=== PATIENT | female | born 1975 | race Asian ===

== ENCOUNTER 2016-12-10 23:30 | Inpatient (IN) | payer OTHER ==
[~2016-12-10] VITALS: Ht 165.1 cm; Wt 76.2 kg
[2016-12-10] MEDS ORDERED: OXYTOCIN 10 UNITS/ML VIAL IM SCH (23:35)
[2016-12-10] MEDS ORDERED: PROMETHAZINE 25 MG/ML VIAL IVP PRN (23:35)
[2016-12-10] MEDS ORDERED: OXYTOCIN 20 UNITS/LR PREMIX 1,000 ML IV SCH (23:35)
[2016-12-10] MEDS ORDERED: NALBUPHINE HYDROCHLORIDE 10 MG/ML VIAL IVP PRN (23:35)
[2016-12-10] MEDS: LACTATED RINGERS 1,000 ML IV SCH (23:45)
[2016-12-10 23:55] LABS: BASOPHILS # (AUTO) 0.1 K/uL (0.00-0.22); BASOPHILS % (AUTO) 1.1 % (0.0-2.0); EOSINOPHILS # (AUTO) 0.1 K/uL (0-0.4); EOSINOPHILS % (AUTO) 1.6 % (0.0-4.0); HEMATOCRIT 40.5 % (36-48); HEMOGLOBIN 13.4 g/dL (12.0-16.0); LYMPHOCYTES # (AUTO) 1.6 K/uL (2.5-16.5); LYMPHOCYTES % (AUTO) 22.8 % (20.5-51.1); MEAN CORPUSCULAR HEMOGLOBIN 31 pg (27-31); MEAN CORPUSCULAR HGB CONC 33 g/dL (33-37); MEAN CORPUSCULAR VOLUME 94 fL (80-94); MONOCYTES # (AUTO) 0.5 K/uL (0.8-1.0); MONOCYTES % (AUTO) 6.5 % (1.7-9.3); NEUTROPHILS # (AUTO) 4.7 K/uL (1.8-7.7); PLATELET COUNT (AUTO) 172 K/uL (140-450)
[2016-12-10 23:59] LABS: APPEARANCE,URINE SL CLOUDY (CLEAR); BILIRUBIN,URINE NEGATIVE (NEGATIVE); BLOOD, URINE 2+ (NEGATIVE); COLOR,URINE YELLOW (YELLOW); LEUKOCYTE ESTERASE ,URINE NEGATIVE (NEGATIVE); NITRITE, URINE NEGATIVE (NEGATIVE); PROTEIN,URINE NEGATIVE (NEGATIVE); UGLUCOSE 2+ (NEGATIVE); UROBILINOGEN,URINE 0.2 EU/dL (0.2 - 1)
[2016-12-11] MEDS ORDERED: OXYTOCIN 10 UNITS/ML VIAL ONE (00:09)
[2016-12-11] MEDS ORDERED: OXYTOCIN 20 UNITS/LR PREMIX 1,000 ML IV ONE (00:09)
[2016-12-11] MEDS ORDERED: NALBUPHINE HYDROCHLORIDE 10 MG/ML VIAL ONE (00:10)
[2016-12-11 00:11] LABS: ALBUMIN 2.8 g/dL (3.4-5.0); ANION GAP 17.6 (8-16); CALCIUM 9.1 mg/dL (8.5-10.1); CARBON DIOXIDE 20.8 mmol/L (21-32); CREATININE 0.7 mg/dL (0.6-1.3); POTASSIUM 4.4 mmol/L (3.5-5.1); TOTAL BILIRUBIN 0.2 mg/dL (0.0-1.0); TOTAL PROTEIN, SERUM 6.7 g/dL (6.4-8.2)
[2016-12-11 00:31] LABS: BACTERIA,URINE FEW /HPF (None Seen); RBC,URINE 0-5 (RARE) /HPF (0-5); WBC,URINE 0-5 (RARE) /HPF (0-5)
[2016-12-11] MEDS: LACTATED RINGERS 1,000 ML IV SCH ×2 (00:45→01:45)
[2016-12-11] MEDS ORDERED: ROPIVACAINE 0.2%/NS PREMIX 250 ML EPI ONE (00:52)
[2016-12-11] MEDS ORDERED: ROPIVACAINE 0.2%/NS PREMIX 250 ML EPI SCH (01:05)
[2016-12-11 02:00] VITALS: BP 133/68
[2016-12-11] MEDS ORDERED: MEASLES, MUMPS, AND RUBELLA 1 VIAL SQVAC PRN (02:25)
[2016-12-11] MEDS ORDERED: IBUPROFEN 800 MG TAB PO PRN (02:25)
[2016-12-11] MEDS ORDERED: WITCH HAZEL 40 PAD PACKAGE TP PRN (02:25)
[2016-12-11] MEDS ORDERED: OXYTOCIN 10 UNITS/ML VIAL IM PRN (02:25)
[2016-12-11] MEDS ORDERED: TEMAZEPAM 15 MG CAP PO PRN (02:25)
[2016-12-11] MEDS ORDERED: HYDROcodone/APAP 5/325 MG 1 TAB TAB PO PRN (02:25)
[2016-12-11] MEDS ORDERED: BENZOCAINE/MENTHOL 20%-0.5% 60 GM CAN TP PRN (02:25)
[2016-12-11] MEDS ORDERED: METHYLERGONOVINE 0.2 MG/ML AMP IM PRN (02:25)
[2016-12-11] MEDS ORDERED: oxyCODONE/APAP 5/325 MG 1 TAB TAB PO PRN (02:25)
[2016-12-11] MEDS ORDERED: AMMONIA AROMATIC 1 INHL INH ONE (05:27)
--- NOTE | 2016-12-11 08:07 | NUR ---
PATIENT HAS BEEN SCREENED AND CATEGORIZED LOW NUTRITION RISK. PATIENT WILL BE SEEN WITHIN 7 DAYS OF ADMISSION. 12/17/[address]
[2016-12-11] MEDS ORDERED: SODIUM PHOSPHATE 118 ML ENEM RC PRN (11:20)
[2016-12-11] MEDS ORDERED: DOCUSATE SOD/SENNA 50/8.6 MG 1 TAB PO SCH (21:00)
[2016-12-12 06:01] LABS: HEMATOCRIT 37.8 % (36-48)
[2016-12-12] MEDS ORDERED: IBUP-2213 PO (09:14)
== END 2016-12-12 17:00 | disposition home or self-care (01) | DRG 560 ==
LOC: MLD 23:30 → MFCC 12-11 04:05
PROVIDERS: ADMIT Obstetrics & Gynecology; ATTEND Obstetrics & Gynecology
PROC: 10E0XZZ Delivery of Products of Conception, External Approach (ICD-10-PCS; principal; 2016-12-11)
PROC: 0W8NXZZ Division of Female Perineum, External Approach (ICD-10-PCS; 2016-12-11)
PROC: 00HU33Z Insertion of Infusion Device into Spinal Canal, Percutaneous Approach (ICD-10-PCS; 2016-12-11)
PROC: 3E0R3CZ (ICD-10-PCS; 2016-12-11)
PROC: 3E0234Z Introduction of Serum, Toxoid and Vaccine into Muscle, Percutaneous Approach (ICD-10-PCS; 2016-12-12)
DX: O24.424 Gestational diabetes mellitus in childbirth, insulin controlled (principal); O09.293 Supervision of pregnancy with other poor reproductive or obstetric history, third trimester; O09.523 Supervision of elderly multigravida, third trimester; O89.4 Spinal and epidural anesthesia-induced headache during the puerperium; Z23 Encounter for immunization; Z37.0 Single live birth; Z3A.38 38 weeks gestation of pregnancy; Z83.3 Family history of diabetes mellitus
CPT/HCPCS: 36415; 51702; 59409; 80053; 81001; 85018; 85025; 86592; 86886; 86900; 86901; 90715; J2300; J2590; J2795; J7120